=== PATIENT | male | born 1960 | race Two or more races ===

== ENCOUNTER 2017-11-04 12:15 | Inpatient (IN) | payer MEDICAID, OTHER ==
[~2017-11-04] VITALS: Ht 205.7 cm; Wt 86.2 kg
--- NOTE | 2017-11-04 12:59 | Emergency Room Report ---
History of Present Illness General Chief Complaint: Gastrointestinal Bleed Source: Patient Present Illness HPI Patient is a 57-year-old male brought in by EMS after increased difficulty with vomiting. Patient reports having intermittent epigastric pain. He states that he been taking aspirin. He reports having coffee-ground emesis. Patient had 2 episodes. He denies any severe pain. The patient prior history of diabetes. He denies prior history of ulcers. He denies any black or bloody stools. The patient was given IV fluids by EMS noted the patient be hypotensive. Allergies: Coded Allergies: No Known Allergies (Unverified , 11/04/17) Patient History Past Medical History: see triage record Reviewed Nursing Documentation: PMH: Agreed, PSxH: Agreed Nursing Documentation-PMH Past Medical History: No History, Except For Hx Diabetes: Yes Review of Systems All Other Systems: negative except mentioned in HPI Physical Exam Vital Signs Date Time Temp Pulse Resp B/P (MAP) Pulse Ox O2 Delivery O2 Flow Rate FiO2 11/04/17 12:18 97.2 82 20 102/57 99 Room Air 97.2 Sp02 EP Interpretation: reviewed, normal General Appearance: normal inspection, well appearing, no apparent distress, alert, GCS 15, non-toxic Head: atraumatic ENT: normal ENT inspection, hearing grossly normal, normal voice Neck: normal inspection, full range of motion, supple, no bony tend Respiratory: normal inspection, lungs clear, normal breath sounds, no respiratory distress, no retraction, no wheezing Cardiovascular #1: regular rate, rhythm, no edema Gastrointestinal: normal inspection, normal bowel sounds, non tender, soft, no guarding, no hernia Genitourinary: no CVA tenderness Musculoskeletal: normal inspection, back normal, normal range of motion Neurologic: normal inspection, alert, responsive, speech normal Psychiatric: normal inspection, judgement/insight normal, mood/affect normal Skin: normal inspection, normal color, no rash Medical Decision Making Diagnostic Impression: Primary Impression: Gastrointestinal hemorrhage ER Course Patient presented for abdominal Pain. Differential diagnoses included ischemic bowel, appendicitis, perforated viscus, abdominal aortic aneurysm, inferior myocardial infarction, viral gastroenteritis. Because of complexity of patient' s case laboratory testing and imaging studies were ordered. I laboratory testing showed evidence of anemia as well as elevated BUN consistent with recent upper GI bleed. Patient was given IV acid joey. He was started on IV fluids. Dr. Barrientos was contacted for for inpatient management Labs Test 11/04/17 12:40 11/04/17 13:25 White Blood Count 12.5 K/UL (4.8-10.8) Red Blood Count 3.40 M/UL (4.70-6.10) Hemoglobin 10.7 G/DL (14.2-18.0) Hematocrit 30.2 % (42.0-52.0) Mean Corpuscular Volume 89 FL (80-99) Mean Corpuscular Hemoglobin 31.4 PG (27.0-31.0) Mean Corpuscular Hemoglobin Concent 35.4 G/DL (32.0-36.0) Red Cell Distribution Width 12.2 % (11.6-14.8) Platelet Count 248 K/UL (150-450) Mean Platelet Volume 6.0 FL (6.5-10.1) Neutrophils (%) (Auto) 68.5 % (45.0-75.0) Lymphocytes (%) (Auto) 16.6 % (20.0-45.0) Monocytes (%) (Auto) 4.7 % (1.0-10.0) Eosinophils (%) (Auto) 9.3 % (0.0-3.0) Basophils (%) (Auto) 1.0 % (0.0-2.0) Sodium Level 142 MMOL/L (136-145) Potassium Level 4.0 MMOL/L (3.5-5.1) Chloride Level 108 MMOL/L (98-107) Carbon Dioxide Level 27 MMOL/L (21-32) Anion Gap 7 mmol/L (5-15) Blood Urea Nitrogen 27 mg/dL (7-18) Creatinine 1.1 MG/DL (0.55-1.30) Estimat Glomerular Filtration Rate > 60 mL/min (>60) Glucose Level 138 MG/DL (74-106) Calcium Level 8.4 MG/DL (8.5-10.1) Total Bilirubin 0.2 MG/DL (0.2-1.0) Aspartate Amino Transf (AST/SGOT) 21 U/L (15-37) Alanine Aminotransferase (ALT/SGPT) 24 U/L (12-78) Alkaline Phosphatase 68 U/L (46-116) Total Protein 7.2 G/DL (6.4-8.2) Albumin 3.0 G/DL (3.4-5.0) Globulin 4.2 g/dL Albumin/Globulin Ratio 0.7 (1.0-2.7) Prothrombin Time 11.0 SEC (9.30-11.50) Prothromb Time International Ratio 1.1 (0.9-1.1) Activated Partial Thromboplast Time 25 SEC (23-33) Last Vital Signs Date Time Temp Pulse Resp B/P (MAP) Pulse Ox O2 Delivery O2 Flow Rate FiO2 11/04/17 12:18 97.2 82 20 102/57 99 Room Air 97.2 Status: improved Disposition: ADMITTED INPATIENT Condition: Serious Remi Hernandez Nov 04, 2017 12:59
[2017-11-04 13:12] LABS: EOSINOPHILS % (AUTO) 9.3 % (0.0-3.0); HEMATOCRIT 30.2 % (42.0-52.0); HEMOGLOBIN 10.7 G/DL (14.2-18.0); LYMPHOCYTES % (AUTO) 16.6 % (20.0-45.0); MEAN CORPUSCULAR VOLUME 89 FL (80-99); MONOCYTES % (AUTO) 4.7 % (1.0-10.0); NEUTROPHILS % (AUTO) 68.5 % (45.0-75.0); PLATELET COUNT 248 K/UL (150-450); RED CELL DISTRIBUTION WIDTH 12.2 % (11.6-14.8); WHITE BLOOD COUNT 12.5 K/UL (4.8-10.8)
[2017-11-04 13:24] VITALS: BP 78/54
[2017-11-04 13:36] VITALS: BP 91/54
[2017-11-04 13:36] LABS: ANION GAP 7 mmol/L (5-15); BLOOD UREA NITROGEN 27 mg/dL (7-18); CALCIUM 8.4 MG/DL (8.5-10.1); CARBON DIOXIDE 27 MMOL/L (21-32); CHLORIDE 108 MMOL/L (98-107); CREATININE 1.1 MG/DL (0.55-1.30); SODIUM 142 MMOL/L (136-145)
[2017-11-04 13:47] LABS: ALANINE AMINOTRANSFERASE 24 U/L (12-78); ALBUMIN/GLOBULIN RATIO 0.7 (1.0-2.7); ALKALINE PHOSPHATASE 68 U/L (46-116); ASPARTATE AMINO TRANSFERASE 21 U/L (15-37); BILIRUBIN,TOTAL 0.2 MG/DL (0.2-1.0)
[2017-11-04 13:51] LABS: INR 1.1 (0.9-1.1)
[2017-11-04 14:06] VITALS: BP 103/58
[2017-11-04 15:15] VITALS: BP 104/62
[2017-11-04] MEDS ORDERED: Acetaminophen 650 MG SUPP RECTAL PRN ×2 (16:15)
[2017-11-04] MEDS ORDERED: Miralax 17gm pkt ORAL PRN (16:15)
[2017-11-04] MEDS ORDERED: Morphine Sulfate 2mg/ml Inj IVP PRN (16:15)
[2017-11-04] MEDS ORDERED: BENAZEPRIL HCL10 MG ORAL (16:19)
[2017-11-04] MEDS ORDERED: BASAGLAR K100 UNIT/1 SQ (16:20)
[2017-11-04] MEDS ORDERED: JANUVIA25 MG ORAL (16:20)
[2017-11-04 16:21] VITALS: BP 110/61
[2017-11-04] MEDS ORDERED: ASPIRIN EC81 MG ORAL (16:22)
[2017-11-04] MEDS ORDERED: METFORMIN HCL850 M1 ORAL (16:23)
[2017-11-04] MEDS ORDERED: GLIPIZIDE5 MG ORAL (16:25)
[2017-11-04] MEDS ORDERED: SIMVASTATIN10 MG ORAL (16:41)
[2017-11-04] MEDS: Pantoprazole 80 MG in NS 250 ML IV SCH (17:56)
[2017-11-04 20:00] VITALS: BP 101/59
[2017-11-04] MEDS ORDERED: LOSARTAN POTAS100 MG ORAL (23:22)
[2017-11-05] VITALS (19 sets, daily range): BP systolic 93–139; BP diastolic 54–81
[2017-11-05] MEDS: Pantoprazole 80 MG in NS 250 ML IV SCH ×5 (03:31→23:57)
[2017-11-05 05:36] LABS: BASOPHILS % (AUTO) 0.7 % (0.0-2.0); EOSINOPHILS % (AUTO) 10.8 % (0.0-3.0); HEMATOCRIT 25.1 % (42.0-52.0); HEMOGLOBIN 8.5 G/DL (14.2-18.0); LYMPHOCYTES % (AUTO) 21.6 % (20.0-45.0); MEAN CORPUSCULAR VOLUME 89 FL (80-99); MONOCYTES % (AUTO) 4.9 % (1.0-10.0); NEUTROPHILS % (AUTO) 61.9 % (45.0-75.0); PLATELET COUNT 225 K/UL (150-450); RED BLOOD COUNT 2.82 M/UL (4.70-6.10); RED CELL DISTRIBUTION WIDTH 11.9 % (11.6-14.8); WHITE BLOOD COUNT 11.3 K/UL (4.8-10.8)
[2017-11-05 05:45] LABS: ANION GAP 6 mmol/L (5-15); BLOOD UREA NITROGEN 38 mg/dL (7-18); CALCIUM 8.2 MG/DL (8.5-10.1); CARBON DIOXIDE 26 MMOL/L (21-32); CHLORIDE 109 MMOL/L (98-107); CREATININE 0.8 MG/DL (0.55-1.30); SODIUM 140 MMOL/L (136-145)
--- NOTE | 2017-11-05 09:45 | GI Initial Consult Note ---
Frida Mitchellh Jamison N.P. 11/05/17 0945: History of Present Illness General Date patient seen: Nov 05, 2017 Time patient seen: 09:34 Reason for Hospitalization: Gastrointestinal Bleed Referring physician: ASIA Reason for Consultation: COFFEE GROUND EMESIS Present Illness HPI Patient is a 57-year-old male brought in by EMS after increased difficulty with vomiting. Patient reports having intermittent epigastric pain. He states that he been taking aspirin. He reports having coffee-ground emesis. Patient had 2 episodes. He denies any severe pain. The patient prior history of diabetes. He denies prior history of ulcers. He denies any black or bloody stools. The patient was given IV fluids by EMS noted the patient be hypotensive. GI consulted for coffee grounds. Pt seen on floor, awake A&Ox4 NAD with no active s/sx of N/V/D. The patient denies any prior episodes of coffee grounds , stating this is his first. Denied any ETOH, tobacco or drug use. Has no history of endoscopy / colonoscopies. Presents today with anemia and mild leukocytosis. Pain tolerable at this time, wishes to eat. Home Meds Reported Medications Losartan Potassium (LOSARTAN POTASSIUM) 100 Mg Tablet, 50 MG ORAL DAILY, TAB 11/04/17 Simvastatin (ZOCOR) 10 Mg Tablet, 10 MG ORAL BEDTIME, TAB 11/04/17 Metformin Hcl* (METFORMIN HCL*) 850 Mg Tablet, 850 MG ORAL BID, TAB 11/04/17 Aspirin Ec* (ASPIRIN EC*) 81 Mg Tablet.dr, 81 MG ORAL DAILY, TAB 11/04/17 Insulin Glargine,Hum.rec.anlog (BASAGLAR KWIKPEN U-100) 100 Unit/1 Ml Insuln.pen , 20 UNIT SQ QPM, EA 11/04/17 Sitagliptin* (JANUVIA*) 25 Mg Tablet, 100 MG ORAL DAILY, TAB 11/04/17 Benazepril Hcl* (BENAZEPRIL HCL*) 10 Mg Tablet, 10 MG ORAL DAILY, TAB 11/04/17 Discontinued Reported Medications Glipizide* (GLIPIZIDE*) 5 Mg Tablet, 5 MG ORAL DAILY, TAB 11/04/17 Med list reviewed/reconciled: Yes Allergies: Coded Allergies: No Known Allergies (Unverified , 2/18/18) Patient History History Provided By: Patient, Medical Record PMH Narrative Past Medical History: No History, Except For Hx Diabetes: Yes HTN HLD Social History: Denies: smoking, alcohol use, drug use, other Review of Systems All Other Systems: negative except mentioned in HPI Physical Exam Vital Signs Date Time Temp Pulse Resp B/P (MAP) Pulse Ox O2 Delivery O2 Flow Rate FiO2 11/04/17 12:18 97.2 82 20 102/57 99 Room Air 97.2 Sp02 EP Interpretation: reviewed, normal Labs Laboratory Tests Test 11/04/17 12:40 11/04/17 13:25 11/05/17 05:00 White Blood Count 12.5 K/UL (4.8-10.8) H 11.3 K/UL (4.8-10.8) H Red Blood Count 3.40 M/UL (4.70-6.10) L 2.82 M/UL (4.70-6.10) L Hemoglobin 10.7 G/DL (14.2-18.0) L 8.5 G/DL (14.2-18.0) L Hematocrit 30.2 % (42.0-52.0) L 25.1 % (42.0-52.0) L Mean Corpuscular Volume 89 FL (80-99) 89 FL (80-99) Mean Corpuscular Hemoglobin 31.4 PG (27.0-31.0) H 30.3 PG (27.0-31.0) Mean Corpuscular Hemoglobin Concent 35.4 G/DL (32.0-36.0) 34.0 G/DL (32.0-36.0) Red Cell Distribution Width 12.2 % (11.6-14.8) 11.9 % (11.6-14.8) Platelet Count 248 K/UL (150-450) 225 K/UL (150-450) Mean Platelet Volume 6.0 FL (6.5-10.1) L 6.4 FL (6.5-10.1) L Neutrophils (%) (Auto) 68.5 % (45.0-75.0) 61.9 % (45.0-75.0) Lymphocytes (%) (Auto) 16.6 % (20.0-45.0) L 21.6 % (20.0-45.0) Monocytes (%) (Auto) 4.7 % (1.0-10.0) 4.9 % (1.0-10.0) Eosinophils (%) (Auto) 9.3 % (0.0-3.0) H 10.8 % (0.0-3.0) H Basophils (%) (Auto) 1.0 % (0.0-2.0) 0.7 % (0.0-2.0) Sodium Level 142 MMOL/L (136-145) 140 MMOL/L (136-145) Potassium Level 4.0 MMOL/L (3.5-5.1) 4.0 MMOL/L (3.5-5.1) Chloride Level 108 MMOL/L (98-107) H 109 MMOL/L (98-107) H Carbon Dioxide Level 27 MMOL/L (21-32) 26 MMOL/L (21-32) Anion Gap 7 mmol/L (5-15) 6 mmol/L (5-15) Blood Urea Nitrogen 27 mg/dL (7-18) H 38 mg/dL (7-18) H Creatinine 1.1 MG/DL (0.55-1.30) 0.8 MG/DL (0.55-1.30) Estimat Glomerular Filtration Rate > 60 mL/min (>60) > 60 mL/min (>60) Glucose Level 138 MG/DL (74-106) H 119 MG/DL (74-106) H Calcium Level 8.4 MG/DL (8.5-10.1) L 8.2 MG/DL (8.5-10.1) L Total Bilirubin 0.2 MG/DL (0.2-1.0) Aspartate Amino Transf (AST/SGOT) 21 U/L (15-37) Alanine Aminotransferase (ALT/SGPT) 24 U/L (12-78) Alkaline Phosphatase 68 U/L (46-116) Total Protein 7.2 G/DL (6.4-8.2) Albumin 3.0 G/DL (3.4-5.0) L Globulin 4.2 g/dL Albumin/Globulin Ratio 0.7 (1.0-2.7) L Prothrombin Time 11.0 SEC (9.30-11.50) Prothromb Time International Ratio 1.1 (0.9-1.1) Activated Partial Thromboplast Time 25 SEC (23-33) Magnesium Level 1.9 MG/DL (1.8-2.4) General Appearance: well appearing, no apparent distress, alert Head: normocephalic EENT: PERRL/EOMI, normal ENT inspection Neck: supple Respiratory: normal breath sounds, no respiratory distress Cardiovascular: normal rate Gastrointestinal: normal inspection, non tender, soft, normal bowel sounds, non -distended Rectal: deferred Genitourinary: deferred Musculoskeletal: normal inspection, back normal Neurologic: normal inspection, alert, oriented x3, responsive Psychiatric: normal inspection, judgement/insight normal, memory normal Skin: normal inspection, normal color, no rash, warm/dry, palpation normal, well hydrated Lymphatic: normal inspection, no adenopathy Current Medications Current Medications Medications (Trade) Dose Ordered Sig/Quoc Route PRN Reason Start Time Stop Time Status Last Admin Dose Admin Acetaminophen (Tylenol) 650 mg Q4H PRN ORAL Mild Pain (Pain Scale 1-3) 11/04/17 16:15 12/04/17 16:14 Acetaminophen (Tylenol) 650 mg Q4H PRN ORAL fever 11/04/17 16:15 12/04/17 16:14 Acetaminophen (Tylenol) 650 mg Q4H PRN RECTAL Mild Pain (Pain Scale 1-3) 11/04/17 16:15 12/04/17 16:14 Acetaminophen (Tylenol) 650 mg Q4H PRN RECTAL fever 11/04/17 16:15 12/04/17 16:14 Bisacodyl (Dulcolax) 10 mg DAILYPRN PRN RECTAL Constipation 11/04/17 16:15 12/04/17 16:14 Dextrose (Dextrose 50%) STAT PRN IV Hypoglycemia 11/04/17 16:15 12/04/17 16:14 Diphenhydramine HCl (Benadryl) 25 mg Q6H PRN ORAL Itching/Pruritis 11/04/17 16:15 12/04/17 16:14 Morphine Sulfate (Morphine Sulfate) 2 mg Q4H PRN IVP mod to severe pain 11/04/17 16:15 11/11/17 16:14 Ondansetron HCl (Zofran) 4 mg Q6H PRN IVP Nausea & Vomiting 11/04/17 16:15 12/04/17 16:14 Pantoprazole 80 mg/Sodium Chloride 250 ml @ 25 mls/hr Q10H IV 11/04/17 17:30 12/04/17 17:29 11/05/17 03:31 Polyethylene Glycol (Miralax) 17 gm DAILYPRN PRN ORAL Constipation 11/04/17 16:15 12/04/17 16:14 Sodium Chloride 1,000 ml @ 100 mls/hr Q10H IVLG 11/04/17 17:15 12/04/17 17:14 11/05/17 03:32 GI: Plan Problems: (1) Coffee ground emesis (2) Gastrointestinal hemorrhage Plan EGD to be scheduled today. - maintain NPO + IVFs - ppi gtt anemia work up monitor H&H, prn transfusions bowel regime ppi fu labs Discussed with Dr. Flores. Thank you for this patient referral, we will follow. VINCENZO FLORES 11/06/17 1253: History of Present Illness General Reason for Hospitalization: Gastrointestinal Bleed Present Illness Home Meds Reported Medications Losartan Potassium (LOSARTAN POTASSIUM) 100 Mg Tablet, 50 MG ORAL DAILY, TAB 11/04/17 Simvastatin (ZOCOR) 10 Mg Tablet, 10 MG ORAL BEDTIME, TAB 11/04/17 Metformin Hcl* (METFORMIN HCL*) 850 Mg Tablet, 850 MG ORAL BID, TAB 11/04/17 Aspirin Ec* (ASPIRIN EC*) 81 Mg Tablet.dr, 81 MG ORAL DAILY, TAB 11/04/17 Insulin Glargine,Hum.rec.anlog (BASAGLAR KWIKPEN U-100) 100 Unit/1 Ml Insuln.pen , 20 UNIT SQ QPM, EA 11/04/17 Sitagliptin* (JANUVIA*) 25 Mg Tablet, 100 MG ORAL DAILY, TAB 11/04/17 Benazepril Hcl* (BENAZEPRIL HCL*) 10 Mg Tablet, 10 MG ORAL DAILY, TAB 11/04/17 Discontinued Reported Medications Glipizide* (GLIPIZIDE*) 5 Mg Tablet, 5 MG ORAL DAILY, TAB 11/04/17 Allergies: Coded Allergies: No Known Allergies (Unverified , 11/04/17) GI: Plan Plan The patient was seen and examined at bedside and all new and available data was reviewed in the patients chart. I agree with the above findings, impression and plan. (Patient seen earlier today. Signature stamp does not reflect patient encounter time.). - [facility] Jamison Barajas Nov 05, 2017 09:45 VINCENZO FLORES Nov 06, 2017 12:53
--- NOTE | 2017-11-05 09:52 | Pre-Procedure Note/Attestation ---
Pre-Procedure Note/Attestation Complete Prior to Procedure Planned Procedure: not applicable Procedure Narrative: egd Indications for Procedure Pre-Operative Diagnosis: GIB Attestation I attest that I discussed the nature of the procedure; its benefits; risks and complications; and alternatives (and the risks and benefits of such alternatives ), prior to the procedure, with the patient (or the patient's legal group sales representative). I attest that, if there was a reasonable possibility of needing a blood transfusion, the patient (or the patient's legal group sales representative) was given the [facility] standardized written summary, pursuant to the Ender Jerel Blood Safety Act ([place] Health and Safety Code # 1645, as amended). I attest that I re-evaluated the patient just prior to the surgery and that there has been no change in the patient's H&P, except as documented below: VINCENZO FLORES Nov 05, 2017 09:52
--- NOTE | 2017-11-05 10:20 | History and Physical ---
History of Present Illness General Date patient seen: Nov 05, 2017 Time patient seen: 10:20 Reason for Hospitalization: Gastrointestinal Bleed Present Illness HPI 57y/o male with pmh of HTN, IDDM type 2, HLD who presents with coffee-ground emesis. Pt c/o intermittent epigastric pain for a few days, then yesterday he noted sudden emesis w/ abt 2 episodes of coffee-ground emesis. At that time states epigastric pain resolved. Has never had this before. Does take ASA 81mg daily and smokes cigarettes. Denies NSAID use. Denies melena, BRBPR, f/c, d/c, chest pain, SOB. In ED, pt was hypotensive to SBP 70s. Given IVFs with improvement. CBC showed hgb 10.7. No active bleeding notes. Given IVFs, pepcid 20mg IV in ED. Currently, pt states he is doing well. Denies further hematemesis since coming into ER. Denies pain. Allergies: Coded Allergies: No Known Allergies (Unverified , 11/04/17) Medication History Scheduled Aspirin Ec* (Aspirin Ec*), 81 MG ORAL DAILY, (Reported) Benazepril Hcl* (Benazepril Hcl*), 10 MG ORAL DAILY, (Reported) Insulin Glargine,Hum.rec.anlog (Basaglar Kwikpen U-100), 20 UNIT SQ QPM, ( Reported) Losartan Potassium (Losartan Potassium), 50 MG ORAL DAILY, (Reported) Metformin Hcl* (Metformin Hcl*), 850 MG ORAL BID, (Reported) Simvastatin (Zocor), 10 MG ORAL BEDTIME, (Reported) Sitagliptin* (Januvia*), 100 MG ORAL DAILY, (Reported) Discontinued Medications Glipizide* (Glipizide*), 5 MG ORAL DAILY, (Reported) Discontinued Reason: Pt stopped taking med Patient History History Provided By: Patient, Family Member, Medical Record Healthcare decision maker N Resuscitation status Full Code Advanced Directive on File Past Medical/Surgical History Past Medical/Surgical History: (1) DM2 (diabetes mellitus, type 2) (2) HTN (hypertension) (3) HLD (hyperlipidemia) Social History Social History: (1) Lives with family Review of Systems Constitutional: Reports: no symptoms Eye: Reports: no symptoms ENT: Reports: no symptoms Respiratory: Reports: no symptoms Cardiovascular: Reports: no symptoms Gastrointestinal: Reports: abdominal pain, diarrhea, vomiting, hematemesis Genitourinary: Reports: no symptoms Musculoskeletal: Reports: no symptoms Skin: Reports: no symptoms Psychiatric: Reports: no symptoms Neurological: Reports: no symptoms Endocrine: Reports: no symptoms Hematologic/Lymphatic: Reports: no symptoms Physical Exam Physical Exam Narrative General: alert, cooperative, no distress, appears stated age Head: normocephalic, without obvious abnormality, atraumatic Eyes: conjunctivae/corneas clear. PERRL, EOM's intact Throat: lips, mucosa, and tongue normal. MMM Neck: supple, symmetrical, trachea midline, and no JVD Lungs: clear to auscultation bilaterally Heart: regular rate and rhythm, S1, S2 normal, no murmur, click, rub or gallop Abdomen: soft, non-tender, non-distended, bowel sounds normal Extremities: extremities normal, atraumatic, no cyanosis or edema Pulses: 2+ and symmetric Skin: skin color, texture, turgor normal; no rashes or lesions Neurologic: grossly normal, no focal deficits Last 24 Hour Vital Signs Date Time Temp Pulse Resp B/P (MAP) Pulse Ox O2 Delivery O2 Flow Rate FiO2 11/05/17 08:00 97.9 18 130/72 96 Room Air 11/05/17 08:00 87 11/05/17 04:00 98.1 20 135/81 96 Room Air 11/05/17 03:41 86 11/05/17 00:06 86 11/05/17 00:00 98.2 19 105/59 96 Room Air 11/04/17 20:00 98.1 20 101/59 98 Room Air 11/04/17 19:52 88 11/04/17 16:22 78 18 110/61 99 Room Air 11/04/17 16:21 78 18 110/61 99 Room Air 11/04/17 15:15 76 18 104/62 99 Room Air 11/04/17 14:06 83 18 103/58 99 Room Air 11/04/17 13:36 83 18 91/54 99 Room Air 11/04/17 13:24 83 18 78/54 99 Room Air 11/04/17 12:18 97.2 82 20 102/57 99 Room Air 97.2 Intake and Output 11/04/17 11/05/17 19:00 07:00 Intake Total 1000 ml 1463 ml Balance 1000 ml 1463 ml Intake Oral 0 ml IV Total 1000 ml 1463 ml # Voids 1 4 Laboratory Tests Test 11/04/17 12:40 11/04/17 13:25 11/05/17 05:00 White Blood Count 12.5 K/UL (4.8-10.8) H 11.3 K/UL (4.8-10.8) H Red Blood Count 3.40 M/UL (4.70-6.10) L 2.82 M/UL (4.70-6.10) L Hemoglobin 10.7 G/DL (14.2-18.0) L 8.5 G/DL (14.2-18.0) L Hematocrit 30.2 % (42.0-52.0) L 25.1 % (42.0-52.0) L Mean Corpuscular Volume 89 FL (80-99) 89 FL (80-99) Mean Corpuscular Hemoglobin 31.4 PG (27.0-31.0) H 30.3 PG (27.0-31.0) Mean Corpuscular Hemoglobin Concent 35.4 G/DL (32.0-36.0) 34.0 G/DL (32.0-36.0) Red Cell Distribution Width 12.2 % (11.6-14.8) 11.9 % (11.6-14.8) Platelet Count 248 K/UL (150-450) 225 K/UL (150-450) Mean Platelet Volume 6.0 FL (6.5-10.1) L 6.4 FL (6.5-10.1) L Neutrophils (%) (Auto) 68.5 % (45.0-75.0) 61.9 % (45.0-75.0) Lymphocytes (%) (Auto) 16.6 % (20.0-45.0) L 21.6 % (20.0-45.0) Monocytes (%) (Auto) 4.7 % (1.0-10.0) 4.9 % (1.0-10.0) Eosinophils (%) (Auto) 9.3 % (0.0-3.0) H 10.8 % (0.0-3.0) H Basophils (%) (Auto) 1.0 % (0.0-2.0) 0.7 % (0.0-2.0) Sodium Level 142 MMOL/L (136-145) 140 MMOL/L (136-145) Potassium Level 4.0 MMOL/L (3.5-5.1) 4.0 MMOL/L (3.5-5.1) Chloride Level 108 MMOL/L (98-107) H 109 MMOL/L (98-107) H Carbon Dioxide Level 27 MMOL/L (21-32) 26 MMOL/L (21-32) Anion Gap 7 mmol/L (5-15) 6 mmol/L (5-15) Blood Urea Nitrogen 27 mg/dL (7-18) H 38 mg/dL (7-18) H Creatinine 1.1 MG/DL (0.55-1.30) 0.8 MG/DL (0.55-1.30) Estimat Glomerular Filtration Rate > 60 mL/min (>60) > 60 mL/min (>60) Glucose Level 138 MG/DL (74-106) H 119 MG/DL (74-106) H Calcium Level 8.4 MG/DL (8.5-10.1) L 8.2 MG/DL (8.5-10.1) L Total Bilirubin 0.2 MG/DL (0.2-1.0) Aspartate Amino Transf (AST/SGOT) 21 U/L (15-37) Alanine Aminotransferase (ALT/SGPT) 24 U/L (12-78) Alkaline Phosphatase 68 U/L (46-116) Total Protein 7.2 G/DL (6.4-8.2) Albumin 3.0 G/DL (3.4-5.0) L Globulin 4.2 g/dL Albumin/Globulin Ratio 0.7 (1.0-2.7) L Prothrombin Time 11.0 SEC (9.30-11.50) Prothromb Time International Ratio 1.1 (0.9-1.1) Activated Partial Thromboplast Time 25 SEC (23-33) Magnesium Level 1.9 MG/DL (1.8-2.4) Height (Feet): 5 Height (Inches): 11.00 Weight (Pounds): 192 Medications Current Medications Medications (Trade) Dose Ordered Sig/Quoc Route PRN Reason Start Time Stop Time Status Last Admin Dose Admin Acetaminophen (Tylenol) 650 mg Q4H PRN ORAL Mild Pain (Pain Scale 1-3) 11/04/17 16:15 12/04/17 16:14 Acetaminophen (Tylenol) 650 mg Q4H PRN ORAL fever 11/04/17 16:15 12/04/17 16:14 Acetaminophen (Tylenol) 650 mg Q4H PRN RECTAL Mild Pain (Pain Scale 1-3) 11/04/17 16:15 12/04/17 16:14 Acetaminophen (Tylenol) 650 mg Q4H PRN RECTAL fever 11/04/17 16:15 12/04/17 16:14 Bisacodyl (Dulcolax) 10 mg DAILYPRN PRN RECTAL Constipation 11/04/17 16:15 12/04/17 16:14 Dextrose (Dextrose 50%) STAT PRN IV Hypoglycemia 11/04/17 16:15 12/04/17 16:14 Diphenhydramine HCl (Benadryl) 25 mg Q6H PRN ORAL Itching/Pruritis 11/04/17 16:15 12/04/17 16:14 Morphine Sulfate (Morphine Sulfate) 2 mg Q4H PRN IVP mod to severe pain 11/04/17 16:15 11/11/17 16:14 Ondansetron HCl (Zofran) 4 mg Q6H PRN IVP Nausea & Vomiting 11/04/17 16:15 12/04/17 16:14 Pantoprazole 80 mg/Sodium Chloride 250 ml @ 25 mls/hr Q10H IV 11/04/17 17:30 12/04/17 17:29 11/05/17 03:31 Polyethylene Glycol (Miralax) 17 gm DAILYPRN PRN ORAL Constipation 11/04/17 16:15 12/04/17 16:14 Sodium Chloride 1,000 ml @ 100 mls/hr Q10H IVLG 11/04/17 17:15 12/04/17 17:14 11/05/17 03:32 Assessment/Plan Problem List: (1) Acute upper GI bleed ICD Codes: K92.2 - Gastrointestinal hemorrhage, unspecified SNOMED: 64237870 (2) Hypotension ICD Codes: I95.9 - Hypotension, unspecified SNOMED: 10999975 (3) Acute blood loss anemia ICD Codes: D62 - Acute posthemorrhagic anemia SNOMED: 122051487 (4) DM2 (diabetes mellitus, type 2) ICD Codes: E11.9 - Type 2 diabetes mellitus without complications SNOMED: 88344892 (5) HLD (hyperlipidemia) ICD Codes: E78.5 - Hyperlipidemia, unspecified SNOMED: 28632956 Status: stable Assessment/Plan Admit inpt GI consulted w/ plan for EGD today Trend CBC q8h Start PPI gtt Keep NPO IVFs Hold home BP meds and diabetic meds LEW Pain control, bowel regimen Supportive care DVT ppx w/ SCDs FULL CODE Discussed w/ pt/family, RN, GI regarding mgmt and dispo. D/w GI re plan for EGD today Peterson Mathews M.D. Nov 05, 2017 10:20
[2017-11-05] MEDS ORDERED: Phenylephrine 10mg/ml Vial ONE (12:00)
[2017-11-05] MEDS ORDERED: Lidocaine 1% MPF 10mg/ml 5ml ONE (12:00)
[2017-11-05] MEDS ORDERED: Propofol 200mg/20ml IV ONE (12:00)
[2017-11-05] MEDS ORDERED: NS 500ML IV ONE (12:05)
--- NOTE | 2017-11-05 12:50 | Endoscopy Procedure Note ---
Endoscopy Procedure Note General Indication for Procedure: gib Procedures Performed: EGD Operative Findings/Diagnosis: large duodenal ulcer Specimen: none Pt Tolerated Procedure Well: Yes Estimated Blood Loss: none Anesthesia Anesthesiologist: ene Anesthesia: MAC Inserted Devices Implant(s) used?: No GI Core Measures 50 yrs or older w/o bx or poly: Not Applicable 10yrs. F/U not recommended: Not Applicable VINCENZO FLORES Nov 05, 2017 12:50
[2017-11-05] MEDS ORDERED: fentaNYL 100 mcg/2 mL IV PRN (13:45)
[2017-11-05] MEDS ORDERED: Atropine Inj 1mg/10ml Syr IV PRN (13:45)
[2017-11-05] MEDS ORDERED: DiphenhydrAMINE 50mg/ml Inj IVP PRN (13:45)
[2017-11-05] MEDS ORDERED: Midazolam 2mg/2ml Inj IVP PRN (13:45)
--- NOTE | 2017-11-05 13:45 | Anethesia Preoperative Eval ---
Anesthesia Pre-op PMH/ROS General Date of Evaluation: Nov 05, 2017 Time of Evaluation: 12:03 Anesthesiologist: keturah ASA Score: ASA 3 Mallampati Score Class I : Soft palate, uvula, fauces, pillars visible Class II: Soft palate, uvula, fauces visible Class III: Soft palate, base of uvula visible Class IV: Only hard plate visible Mallampati Classification: Class II Surgeon: munir Diagnosis: gi bleed Surgical Procedure: egd Anesthesia History: none Social History: current smoker Family History: no anesthesia problems Allergies: Coded Allergies: No Known Allergies (Unverified , 11/04/17) Medications: see eMAR Past Medical History Endocrine: Reports: DM Anesthesia Pre-op Phys. Exam Physician Exam Last Vital Signs Date Time Temp Pulse Resp B/P (MAP) Pulse Ox O2 Delivery O2 Flow Rate FiO2 11/05/17 13:25 97.4 97 19 104/56 93 Nasal Cannula 3.0 Constitutional: NAD Neurologic: CN 2-12 intact Cardiovascular: RRR Respiratory: CTA Gastrointestinal: S/NT/ND Airway Exam Mallampati Score: Class II MO: limited Neck: supple TMD: 2fb ROM: limited Anesthesia Pre-op A/P Labs Hematology Test 11/05/17 05:00 White Blood Count 11.3 K/UL (4.8-10.8) H Red Blood Count 2.82 M/UL (4.70-6.10) L Hemoglobin 8.5 G/DL (14.2-18.0) L Hematocrit 25.1 % (42.0-52.0) L Mean Corpuscular Volume 89 FL (80-99) Mean Corpuscular Hemoglobin 30.3 PG (27.0-31.0) Mean Corpuscular Hemoglobin Concent 34.0 G/DL (32.0-36.0) Red Cell Distribution Width 11.9 % (11.6-14.8) Platelet Count 225 K/UL (150-450) Mean Platelet Volume 6.4 FL (6.5-10.1) L Neutrophils (%) (Auto) 61.9 % (45.0-75.0) Lymphocytes (%) (Auto) 21.6 % (20.0-45.0) Monocytes (%) (Auto) 4.9 % (1.0-10.0) Eosinophils (%) (Auto) 10.8 % (0.0-3.0) H Basophils (%) (Auto) 0.7 % (0.0-2.0) Chemistry Test 11/05/17 05:00 Sodium Level 140 MMOL/L (136-145) Potassium Level 4.0 MMOL/L (3.5-5.1) Chloride Level 109 MMOL/L (98-107) H Carbon Dioxide Level 26 MMOL/L (21-32) Anion Gap 6 mmol/L (5-15) Blood Urea Nitrogen 38 mg/dL (7-18) H Creatinine 0.8 MG/DL (0.55-1.30) Estimat Glomerular Filtration Rate > 60 mL/min (>60) Glucose Level 119 MG/DL (74-106) H Calcium Level 8.2 MG/DL (8.5-10.1) L Magnesium Level 1.9 MG/DL (1.8-2.4) Risk Assessment & Plan Assessment: asa3 Plan: mac Status Change Before Surgery: No Pre-Antibiotics Drug: SUSHILA York Nov 05, 2017 13:45
--- NOTE | 2017-11-05 13:45 | Immediate Post-Op Evaluation ---
Immediate Post-Op Evalulation Immediate Post-Op Evalulation Procedure: egd Date of Evaluation: Nov 05, 2017 Time of Evaluation: 13:10 IV Fluids: 2500ml 0.9ns Blood Products: none Estimated Blood Loss: approximately 2liters Blood Pressure Systolic: 101 Blood Pressure Diastolic: 57 Pulse Rate: 100 Respiratory Rate: 18 O2 Sat by Pulse Oximetry: 100 Temperature (Fahrenheit): 97.0 Pain Score (1-10): 0 Nausea: No Vomiting: No Complications significant blood loss from ulceration in the duodeneum during procedure. 1.5 liters 0.9ns given. phenylephrine given to support cardiovascular system during rapid blood loss. patient had large bllody discharge per rectum. patient to be transferred to icu from pacu when bed available for blood transfusion and stabilization Patient Status: awake, reacts, patent Hydration Status: adequate Drug: SUSHILA York Nov 05, 2017 13:45
--- NOTE | 2017-11-05 13:45 | 48 Hour Post Anesthesia Eval ---
Post Anesthesia Evaluation Procedure: egd Date of Evaluation: Nov 05, 2017 Time of Evaluation: 13:12 Blood Pressure Systolic: 98 0: 64 Pulse Rate: 104 Respiratory Rate: 18 Temperature (Fahrenheit): 97.0 O2 Sat by Pulse Oximetry: 95 Airway: patent Nausea: No Vomiting: No Pain Intensity: 0 Hydration Status: adequate Cardiopulmonary Status: stable Mental Status/LOC: patient returned to baseline Post-Anesthesia Complications: none Follow-up care needed: N/A SUSHILA SHARIF Nov 05, 2017 13:45
--- NOTE | 2017-11-05 15:01 | Consultation ---
History of Present Illness General Date patient seen: Nov 05, 2017 Chief Complaint: Gastrointestinal Bleed Referring physician: ASIA Reason for Consultation: COFFEE GROUND EMESIS Present Illness HPI 57 year old male with PMHx of DM presented with fatigue and coffee ground emesis. As per patient he was doing okay until yesterday when he began to feel weak and fatigued. EMS called and upon transport was noted to have coffee ground emesis. on arrival anemia and concerns for upper gi bleed. Had endoscopy today which demonstrated a bleeding duodenal ulcer. initially able to obtain some hemostatsis with EGD but unable to completely control. transferred to ICU for care and noted to have bright red BM. repeat labs demonstrate worsening anemia. surgery called to evaluate. patient seen at bedside and history obtained. states he feels okay right now but still fatigued. no abdominal pain. no history of significant abdominal pain. no significant reflux history. states first episode of such events. no prior history of scope or bloody stool Allergies: Coded Allergies: No Known Allergies (Unverified , 11/04/17) Medication History Scheduled Aspirin Ec* (Aspirin Ec*), 81 MG ORAL DAILY, (Reported) Benazepril Hcl* (Benazepril Hcl*), 10 MG ORAL DAILY, (Reported) Insulin Glargine,Hum.rec.anlog (Basaglar Kwikpen U-100), 20 UNIT SQ QPM, ( Reported) Losartan Potassium (Losartan Potassium), 50 MG ORAL DAILY, (Reported) Metformin Hcl* (Metformin Hcl*), 850 MG ORAL BID, (Reported) Simvastatin (Zocor), 10 MG ORAL BEDTIME, (Reported) Sitagliptin* (Januvia*), 100 MG ORAL DAILY, (Reported) Discontinued Medications Glipizide* (Glipizide*), 5 MG ORAL DAILY, (Reported) Discontinued Reason: Pt stopped taking med Patient History History Provided By: Patient, Medical Record, PMD Healthcare decision maker N Resuscitation status Full Code Advanced Directive on File Past Medical/Surgical History Past Medical/Surgical History: (1) Bleeding duodenal ulcer (2) Gastrointestinal hemorrhage (3) Coffee ground emesis Review of Systems Constitutional: Reports: weakness Eye: Denies: no symptoms, see HPI, eye pain, blurred vision, tearing, double vision, nose pain, nose congestion, acuity changes, discharge, other ENT: Denies: no symptoms, see HPI, ear pain, ear discharge, nose pain, nose congestion, throat pain, throat swelling, mouth pain, hearing loss, nasal discharge, other Respiratory: Denies: no symptoms, see HPI, cough, orthopnea, shortness of breath, stridor, wheezing, RODRIGUEZ, sputum, other Cardiovascular: Denies: no symptoms, see HPI, chest pain, edema, palpitations, syncope, PND, other Gastrointestinal: Reports: melena, hematemesis, Denies: no symptoms, see HPI, abdominal pain, constipation, diarrhea, nausea, vomiting, other Genitourinary: Denies: no symptoms, see HPI, discharge, dysuria, frequency, hematuria, pain, retention, incontinence, urgency, vag bleed/dc, other Musculoskeletal: Denies: no symptoms, see HPI, back pain, gout, joint pain, joint swelling, muscle pain, muscle stiffness, other Skin: Denies: no symptoms, see HPI, rash, change in color, change in hair/nails , dryness, lesions, other Psychiatric: Denies: no symptoms, see HPI, prior hx, anxiety, depressed feelings, emotional problems, SI, HI, hallucinations, other Neurological: Denies: no symptoms, see HPI, headache, numbness, paresthesia, seizure, tingling, tremors, focal weakness, syncope, dizziness, other Endocrine: Denies: no symptoms, see HPI, excessive sweating, flushing, intolerance to temperature, increased thirst, increased urine, unexplained weight loss, other Hematologic/Lymphatic: Denies: no symptoms, see HPI, anemia, blood clots, easy bleeding, easy bruising, swollen glands, diathesis, other Physical Exam General Appearance: alert Lines, tubes and drains: peripheral HEENT: normocephalic, PERRL Neck: normal inspection Respiratory/Chest: normal breath sounds, no respiratory distress, no accessory muscle use Cardiovascular/Chest: normal peripheral pulses, tachycardia Abdomen: normal bowel sounds, non tender, soft, no organomegaly, no mass Genitourinary/Rectal: heme positive stool Extremities: normal inspection Skin Exam: normal pigmentation, warm/dry Neurologic: alert, oriented x 3 Last 24 Hour Vital Signs Date Time Temp Pulse Resp B/P (MAP) Pulse Ox O2 Delivery O2 Flow Rate FiO2 11/05/17 13:25 97.4 97 19 104/56 93 Nasal Cannula 3.0 11/05/17 13:20 98 24 106/61 95 Nasal Cannula 3.0 11/05/17 13:10 104 24 93/64 95 Nasal Cannula 3.0 11/05/17 13:05 101 22 103/59 96 Nasal Cannula 3.0 11/05/17 12:58 97.5 100 19 101/57 98 Nasal Cannula 3.0 11/05/17 12:00 97.5 85 18 120/69 98 Room Air 11/05/17 12:00 78 11/05/17 08:00 97.9 18 130/72 96 Room Air 11/05/17 08:00 87 11/05/17 04:00 98.1 20 135/81 96 Room Air 11/05/17 03:41 86 11/05/17 00:06 86 11/05/17 00:00 98.2 19 105/59 96 Room Air 11/04/17 20:00 98.1 20 101/59 98 Room Air 11/04/17 19:52 88 11/04/17 16:22 78 18 110/61 99 Room Air 11/04/17 16:21 78 18 110/61 99 Room Air 11/04/17 15:15 76 18 104/62 99 Room Air Intake and Output 11/04/17 11/05/17 19:00 07:00 Intake Total 1000 ml 1463 ml Balance 1000 ml 1463 ml Intake Oral 0 ml IV Total 1000 ml 1463 ml # Voids 1 4 Laboratory Tests Test 11/05/17 05:00 White Blood Count 11.3 K/UL (4.8-10.8) H Red Blood Count 2.82 M/UL (4.70-6.10) L Hemoglobin 8.5 G/DL (14.2-18.0) L Hematocrit 25.1 % (42.0-52.0) L Mean Corpuscular Volume 89 FL (80-99) Mean Corpuscular Hemoglobin 30.3 PG (27.0-31.0) Mean Corpuscular Hemoglobin Concent 34.0 G/DL (32.0-36.0) Red Cell Distribution Width 11.9 % (11.6-14.8) Platelet Count 225 K/UL (150-450) Mean Platelet Volume 6.4 FL (6.5-10.1) L Neutrophils (%) (Auto) 61.9 % (45.0-75.0) Lymphocytes (%) (Auto) 21.6 % (20.0-45.0) Monocytes (%) (Auto) 4.9 % (1.0-10.0) Eosinophils (%) (Auto) 10.8 % (0.0-3.0) H Basophils (%) (Auto) 0.7 % (0.0-2.0) Sodium Level 140 MMOL/L (136-145) Potassium Level 4.0 MMOL/L (3.5-5.1) Chloride Level 109 MMOL/L (98-107) H Carbon Dioxide Level 26 MMOL/L (21-32) Anion Gap 6 mmol/L (5-15) Blood Urea Nitrogen 38 mg/dL (7-18) H Creatinine 0.8 MG/DL (0.55-1.30) Estimat Glomerular Filtration Rate > 60 mL/min (>60) Glucose Level 119 MG/DL (74-106) H Calcium Level 8.2 MG/DL (8.5-10.1) L Magnesium Level 1.9 MG/DL (1.8-2.4) Height (Feet): 6 Height (Inches): 9.00 Weight (Pounds): 190 Medications Current Medications Medications (Trade) Dose Ordered Sig/Quoc Route PRN Reason Start Time Stop Time Status Last Admin Dose Admin Acetaminophen (Tylenol) 650 mg Q4H PRN ORAL Mild Pain (Pain Scale 1-3) 11/04/17 16:15 12/04/17 16:14 Acetaminophen (Tylenol) 650 mg Q4H PRN ORAL fever 11/04/17 16:15 12/04/17 16:14 Acetaminophen (Tylenol) 650 mg Q4H PRN RECTAL Mild Pain (Pain Scale 1-3) 11/04/17 16:15 12/04/17 16:14 Acetaminophen (Tylenol) 650 mg Q4H PRN RECTAL fever 11/04/17 16:15 12/04/17 16:14 Dextrose (Dextrose 50%) STAT PRN IV Hypoglycemia 11/04/17 16:15 12/04/17 16:14 Diphenhydramine HCl (Benadryl) 25 mg Q6H PRN ORAL Itching/Pruritis 11/04/17 16:15 12/04/17 16:14 Morphine Sulfate (Morphine Sulfate) 2 mg Q4H PRN IVP mod to severe pain 11/04/17 16:15 11/11/17 16:14 Ondansetron HCl (Zofran) 4 mg Q6H PRN IVP Nausea & Vomiting 11/04/17 16:15 12/04/17 16:14 Pantoprazole 80 mg/Sodium Chloride 250 ml @ 25 mls/hr Q10H IV 11/04/17 17:30 12/04/17 17:29 11/05/17 03:31 Sodium Chloride 1,000 ml @ 100 mls/hr Q10H IV 11/05/17 14:15 12/05/17 14:14 Sodium Chloride 1,000 ml @ 100 mls/hr Q10H IVLG 11/04/17 17:15 12/04/17 17:14 11/05/17 03:32 Assessment/Plan Problem List: (1) Bleeding duodenal ulcer Assessment & Plan: 57 year old male with bleeding duodenal ulcer. EGD visualized ulcer and attempted hemostasis but unable to acheive complete hemostasis. Afebrile, tachycardic, anemia. labs reviewed. -currently in ICU receiving resuscitation. transfuse PRBC. trend H/H. discussed possible surgery if hemorrhage continues. NG tube. NPO ICD Codes: K26.4 - Chronic or unspecified duodenal ulcer with hemorrhage SNOMED: [id number] Status: not improved Joe Huntley Nov 05, 2017 15:01
[2017-11-05 15:29] LABS: HEMATOCRIT 18.5 % (42.0-52.0); MEAN CORPUSCULAR VOLUME 90 FL (80-99); PLATELET COUNT 190 K/UL (150-450); RED BLOOD COUNT 2.05 M/UL (4.70-6.10); RED CELL DISTRIBUTION WIDTH 12.3 % (11.6-14.8); WHITE BLOOD COUNT 13.9 K/UL (4.8-10.8)
[2017-11-05 15:55] LABS: HEMOGLOBIN 6.3 G/DL (14.2-18.0)
--- NOTE | 2017-11-05 16:07 | General Progress Note ---
Progress Note Progress Note Surgery: repeat H/H low. NG tube placed and no significant output had another BM and no bright red blood noted now. just black stool HD stable. transfuse 3 units prbc. recheck H/H at 10pm and q6h from there. okay to transfuse if still anemia. if continues to be stable will plan for potential repeat EGD tomorrow. if bleeds significantly again will need surgery. Joe Huntley Nov 05, 2017 16:07
--- NOTE | 2017-11-05 16:15 | Procedure Note ---
DATE OF PROCEDURE: 11/05/2017 SURGEON: Leonardo Hernandes M.D. ANESTHESIOLOGIST: Dr. Rodriguez. REFERRING PHYSICIAN: Linn Landers M.D. PROCEDURE: Upper endoscopy with hemostasis. ANESTHESIA: Per Dr. Rodriguez. INSTRUMENT: Olympus adult flexible upper endoscope. INDICATION: Upper GI bleeding. The procedure, risks, benefits, and possible consequences, including hemorrhage, aspiration, perforation and infection, and alternative treatments, were explained to the patient/legal guardian by Dr. Leonardo Hernandes and the patient/legal guardian understood and accepted these risks. DESCRIPTION OF PROCEDURE: After informed consent was obtained and the patient was adequately sedated, Olympus upper endoscope was advanced mouth into the second portion of the duodenum and retroflexion was performed in the stomach. The patient had a large duodenal bulb ulcer. This also was very big covering almost 30% to 35% of the duodenal bulb. There were two vessels seen in the middle of this ulcer next to each other. We started hemostasis procedure. First, we used a Hemoclip from [employer]. We put the Hemoclip on the larger of these two artery in the middle of this ulcer. We clipped the artery, but clipped first grabbed the artery and then fell off. It . this made the artery to bleed massively. . At this point, the patient started massively bleeding. It took us up to half an hour to be able to stop the bleeding using 50 mL of the epi-wash injecting 3 mL of epinephrine of 1:10,000 dilution around it. Finally, we were able to stop the bleeding now. We used other methods of hemostasis given the clip did not work, so we used gold probe to cauterize, but again as soon as we put the gold probe on the vessel to cauterize, it popped open again and bleed again. We realized that both hemoclipping and gold prob cauterization has failed. we washed the ulcer with epi again and that stopped the bleeding again. given hemoclipping, epi injection and gold prob cauterization failed and bleeding stopped we decided to hold off continuing trying. At this time, we will try to keep the patient on Protonix drip, keep him n.p.o., monitor his hemoglobin and hematocrit to keep hemoglobin above 7, and we are going to go back again tomorrow. I also called radiology to see if they will be able to do angiogram and hemostasis but the radiologist Dr. Malhotra unfortunately he said we do not have the proper equipment for that. I will ordered 2 units of PRBC stat. Transfere the patient to the ICU and will call surgery Dr. Huntley If the patient is stable tomorrow, we will scope him and try to cauterize when he has less bleeding. I want to thank Dr. Landers for this kind referral. Leonardo Hernandes M.D. DR: Devin JOB#: [id number] CC: Linn Landers M.D.; Fax#: [phone] [facility]
--- NOTE | 2017-11-05 17:19 | Diagnostic Imaging Report ---
Indication: Status post nasogastric tube placement Technique: Supine view of the upper abdomen Comparison: none Findings: There is a nasogastric tube in place, tip coiled in the gastric fundus, proximal port well beyond the gastroesophageal junction. The stomach is mildly distended with gas despite this. Considerable gas is seen in nondilated large and small bowel loops Impression: Satisfactory position of nasogastric tube
[2017-11-05 21:56] LABS: BASOPHILS % (AUTO) 0.7 % (0.0-2.0); EOSINOPHILS % (AUTO) 9.7 % (0.0-3.0); HEMATOCRIT 27.5 % (42.0-52.0); HEMOGLOBIN 9.6 G/DL (14.2-18.0); LYMPHOCYTES % (AUTO) 28.6 % (20.0-45.0); MEAN CORPUSCULAR VOLUME 88 FL (80-99); MONOCYTES % (AUTO) 5.5 % (1.0-10.0); NEUTROPHILS % (AUTO) 55.5 % (45.0-75.0); PLATELET COUNT 161 K/UL (150-450); RED BLOOD COUNT 3.14 M/UL (4.70-6.10); RED CELL DISTRIBUTION WIDTH 11.8 % (11.6-14.8); WHITE BLOOD COUNT 13.2 K/UL (4.8-10.8)
[2017-11-06] VITALS: BP 131/65
[2017-11-06 01:00] VITALS: BP 52/39
[2017-11-06] MEDS ORDERED: Sterile Water Irrig 1000ml IRRIG ONE (02:02)
[2017-11-06] MEDS ORDERED: Tubing Blood Filter IV ONE (02:02)
--- NOTE | 2017-11-06 02:17 | Emergency Room Report ---
History of Present Illness General Chief Complaint: Gastrointestinal Bleed Source: Patient, Medical Record, PMD Present Illness Allergies: Coded Allergies: No Known Allergies (Unverified , 11/04/17) Nursing Documentation-[facility] Past Medical History Deferred: No Family Available Past Medical History: No History, Except For Hx Cardiac Problems: No Hx Diabetes: Yes Hx Cancer: No Hx Gastrointestinal Problems: No Hx Neurological Problems: No Physical Exam Vital Signs Date Time Temp Pulse Resp B/P (MAP) Pulse Ox O2 Delivery O2 Flow Rate FiO2 11/04/17 12:18 97.2 82 20 102/57 99 Room Air 97.2 11/05/17 12:58 3.0 Procedures CPR/Code Blue CPR/Code Blue Narrative Called for Code Blue at 117am Per meatman, patient had been transfused ?a couple hours ago Had EGD "that wasnt completed earlier" per RN Patient became altered, tachycardic, then went into cardiac arrest with asystole CPR was in progress at time of arrival VS for BP 60/40, HR 75, O2 sat 90% on BVM Patient unresponsive During BVM oxygenation patient had bleeding from mouth See ET intubation procedure note for further info After intubation, CPR was continued for 45 minutes 7X epinephrine, continued CPR At one point he had PEA briefly but mostly asystole on monitor I tried to obtain Porsche tube for massive GI Bleed but was informed there is none available in ED, ICU, or Central Supply There were no other means at my discretion in this hospital at this time of night to stop this massive GI bleed Patient ultimately was pronounced at 203am. RNs stated they would contact admitting physician. Intubation Intubation : Consent: Emergent Intubation Method: orotracheal Tube Size (cm): 7.5 Breath Sounds after Intubation: equal Post Intubation Xray: No Attempts: Other - 2, one with direct larygoscopy and one with glidescope Patient Tolerated: Well Complications: None Progress Patient had massive amount of bleeding from esophagus into oropharynx during intubation. Unable to visualize cords with direct laryngoscopy despite continued suction. Able to visualize cords and pass ET tube under Glidescope Patient continued to bleed from esophagus into oropharynx and out of the ET tube apparatus while bagging during cardiac arrest Medical Decision Making Diagnostic Impression: Primary Impression: Gastrointestinal hemorrhage Qualified Codes: K92.2 - Gastrointestinal hemorrhage, unspecified Additional Impression: Cardiac arrest Last Vital Signs Date Time Temp Pulse Resp B/P (MAP) Pulse Ox O2 Delivery O2 Flow Rate FiO2 11/06/17 00:00 98.5 85 14 131/65 99 Room Air 11/05/17 15:00 3.0 Status: worsened Disposition: ADMITTED INPATIENT Condition: Referrals: RAIMUNDO MCKEON ,REFERRI (PCP) LUISANA JACOB M.D. Nov 06, 2017 02:17
--- NOTE | 2017-11-06 08:35 | Cardiology Report ---
APPROVED REPORT EKG Measurement Heart [id number] CT [id number] Normal sinus rhythm Normal ECG
--- NOTE | 2017-11-08 10:49 | Discharge Summary ---
Discharge Summary Hospital Course Date of Admission Nov 04, 2017 at 15:00 Date of Discharge Nov 06, 2017 at 02:03 Admitting Diagnosis UPPER GI BLEED HPI Waqas Dhillon is a 57 year old male who was admitted on Nov 04, 2017 at 15:00 for Hypotensive Hospital Course [id number] Discharge Discharge Disposition Patient Discharge Diagnoses: Anan Pierce NP Nov 08, 2017 10:49
--- NOTE | 2017-11-09 03:00 | Discharge Summary 2 SIG ---
DATE OF ADMISSION: 11/04/2017 DATE OF DISCHARGE: 11/06/2017 SUMMARY CONSULTANTS: 1. Leonardo Hernandes M.D. (Gastroenterology) 2. Joe Huntley M.D. (General surgery) BRIEF SUMMARY: The patient was an unfortunate 57-year-old male with history of hypertension, insulin-dependent diabetes mellitus type 2, hyperlipidemia, tobacco abuse who presented to emergency room due to coffee- ground emesis. The patient complained of intermittent epigastric pain for few days. The day prior to admission, he had about two episodes of coffee-ground vomitus. He never had this symptom before. He does take aspirin 81 mg daily and is a cigarette smoker. On evaluation at ED, he was noted to be hypotensive with SBP to 70s. He was given IV fluids with improvement in blood pressure. Blood work showed hemoglobin of 10.7. He was given Pepcid IV at ED. There was no active bleeding noted in ED. He was admitted to telemetry for evaluation of acute GI bleed. He was placed on n.p.o. He was started on Protonix drip. His CBC was monitored. He was followed by gastroenterology, Dr. Hernandes. Following day, on 11/05/2017, he underwent EGD and findings showed the patient had a large bleeding duodenal bulb ulcer. Hemoclip from [employer] was used on the larger of the two arteries in the middle of the ulcer, however, the patient started massively bleeding. Other methods of hemostasis were used and a gold probe was used to cauterize, however, it bled again. Ulcer was flushed and again was given epi-injection. Given hemoclipping, epi-injection, and gold probe cauterization failed and bleeding stopped, decision was made to hold off on further hemostasis and to keep the patient on Protonix drip and keep him on n.p.o. He was given additional blood transfusion and was transferred to ICU for closer monitoring. He was evaluated by general surgery. NG tube was placed and no significant output was noted. He had another bowel movement which was black stool but no bright red blood noted. He received total of 3 units of packed RBC blood transfusion. Plan was for repeat EGD in the morning. If significant bleeding, then plan was for surgery. He was hemodynamically stable that evening, however, overnight and reviewer sales of the following day, the patient was noted to be altered, and went into cardiac arrest with asystole. VS were BP 60/40, HR 75, O2 sat 90% on BVM. Patient unresponsive. A Code Blue was called. He was orally intubated, however, there was massive bleeding noted coming out from from the oral cavity. He was aggressively resuscitated and CPR continued for 45 minutes, however patient had no return of spontaneous circulation, and the patient eventually . FINAL DIAGNOSES: 1. Acute upper gastrointestinal bleed with hemorrhagic shock 2. Cardiac arrest 3. Large duodenal bulb bleeding ulcer. 4. Acute blood loss anemia secondary to GI bleed, requiring blood transfusion. 5. Diabetes mellitus, type 2. 6. Hyperlipidemia. 7. Tobacco abuse Peterson Mathews M.D. I have been assigned to dictate discharge summary on this account and I was not involved in the patient's management. Anna Pierce N.P. DR: MARY JOB#: [id number] CC: CARTER
== END 2017-11-06 02:03 | disposition expired | DRG 241 ==
LOC: EDBD 12:15 → EMR 12:30 → 2E 15:00 → EDBEDREQ 16:20 → ICU 11-05 13:52
PROC: 30233N1 Transfusion of Nonautologous Red Blood Cells into Peripheral Vein, Percutaneous Approach (ICD-10-PCS; 2017-11-05)
PROC: 0W3P8ZZ Control Bleeding in Gastrointestinal Tract, Via Natural or Artificial Opening Endoscopic (ICD-10-PCS; principal; 2017-11-05 12:35)
PROC: 3E0G8GC Introduction of Other Therapeutic Substance into Upper GI, Via Natural or Artificial Opening Endoscopic (ICD-10-PCS; 2017-11-05 12:35)
PROC: 5A12012 Performance of Cardiac Output, Single, Manual (ICD-10-PCS; 2017-11-06)
PROC: 0BH17EZ Insertion of Endotracheal Airway into Trachea, Via Natural or Artificial Opening (ICD-10-PCS; 2017-11-06)
DX: K26.4 Chronic or unspecified duodenal ulcer with hemorrhage (principal); R57.8 Other shock; I95.9 Hypotension, unspecified; D62 Acute posthemorrhagic anemia; E78.5 Hyperlipidemia, unspecified; E11.9 Type 2 diabetes mellitus without complications; Z79.4 Long term (current) use of insulin; F17.200 Nicotine dependence, unspecified, uncomplicated
CPT/HCPCS: 36415; 74018; 80048; 80053; 82962; 83735; 85007; 85025; 85610; 85730; 86850; 86900; 86901; 86920; 93005; 94003; 94150; 99285; J0171; J2370